=== PATIENT | male | born 1940 | race Caucasian/White ===

== ENCOUNTER 2025-06-15 11:47 | Inpatient (IN) ==
[2025-06-15] MEDS: 0.9 % SODIUM CHLORIDE 1,000 ML IV ONE (12:47)
[2025-06-15] MEDS ORDERED: DEXTROSE 50% 50 ML VIAL IV PRN (15:45)
[2025-06-15] MEDS ORDERED: IPRATROPIUM/ALBUTEROL 3 ML AMPUL.NEB NEB PRN (15:45)
[2025-06-15] MEDS ORDERED: METOCLOPRAMIDE 10 MG/2 ML VIAL IV PRN (15:45)
[2025-06-15] MEDS ORDERED: SENNOSIDES 1 TABLET PO PRN (15:45)
[2025-06-15] MEDS ORDERED: POTASSIUM CHLORIDE 40 MEQ in DEXTROSE 5% IN WATER 500 ML IV PRN (15:45)
[2025-06-15] MEDS ORDERED: METOPROLOL TARTRATE 5 MG/5 ML VIAL IV PRN (15:45)
[2025-06-15] MEDS ORDERED: POLYETHYLENE GLYCOL 3350 17 GM PACKET PO PRN (15:45)
[2025-06-15] MEDS ORDERED: MAGNESIUM SULFATE 2 GM/50 ML BAG IV PRN (15:45)
[2025-06-15] MEDS ORDERED: ACETAMINOPHEN 325 MG TABLET PO PRN (15:45)
[2025-06-15] MEDS ORDERED: DEXTROSE 31 GM ORAL.SUSP PO PRN (15:45)
[2025-06-15] MEDS ORDERED: POTASSIUM CHLORIDE 20 MEQ TABLET PO PRN (15:45)
[2025-06-15] MEDS: 0.9 % SODIUM CHLORIDE 10 ML SYRINGE IV SCH (16:46)
[2025-06-15] MEDS: INSULIN LISPRO 1 UNIT/0.01 ML UNIT SQ SCH (16:47)
[2025-06-15] MEDS: REMDESIVIR 200 MG in 0.9 % SODIUM CHLORIDE 250 ML IV ONE (16:50)
[2025-06-15] MEDS ORDERED: LORATADINE 10 MG TABLET PO PRN (17:14)
[2025-06-15] MEDS: 0.9 % SODIUM CHLORIDE 500 ML IV ONE (19:29)
[2025-06-15] MEDS: GABAPENTIN 100 MG CAPSULE PO SCH (21:00)
[2025-06-15] MEDS: CARVEDILOL 3.125 MG TABLET PO SCH (21:00)
[2025-06-15] MEDS: PANTOPRAZOLE 40 MG TABLET PO SCH (21:00)
[2025-06-15] MEDS: 0.9 % SODIUM CHLORIDE 1,000 ML IV SCH (22:22)
[2025-06-15] MEDS: DOCUSATE SODIUM 100 MG CAPSULE PO SCH (22:40)
[2025-06-15] MEDS: GABAPENTIN 100 MG CAPSULE PO ONE (22:40)
[2025-06-15] MEDS: CARVEDILOL 6.25 MG TABLET ONE (22:40)
[2025-06-15] MEDS: PANTOPRAZOLE 40 MG TABLET ONE (22:40)
[2025-06-16 05:17] LABS: Estimated Average Glucose(eAG) 226.0 mg/dL; Hemoglobin A1C 9.5 % Hgb (4.0-6.0)
[2025-06-16 06:56] LABS: Basophils # (Auto) 0 K/mcL (0.00-0.30); Basophils % (Auto) 0 % (0.0-2.0); Eosinophils # (Auto) 0 K/mcL (0.00-0.70); Eosinophils % (Auto) 0 % (0.0-7.0); Hematocrit 29.7 % (40.1-51.0); Hemoglobin 9.7 g/dL (13.7-17.5); Lymphocytes # (Auto) 0.94 K/mcL (1.50-4.80); Lymphocytes % (Auto) 20.2 % (15.5-49.0); Mean Corpuscular HGB Conc 32.7 g/dL (31.0-36.0); Monocytes # (Auto) 0.38 K/mcL (0.10-0.90); Monocytes % (Auto) 8.2 % (1.0-12.0); Neutrophils % (Auto) 71.4 % (38.0-78.0); Platelet Count 94 K/mcL (140-440); RBC 2.96 M/mcL (4.63-6.08); WBC 4.7 K/mcL (4.5-11.0)
[2025-06-16 06:56] LABS: Uric Acid 5.4 mg/dL (2.5-8.0)
[2025-06-16 06:57] LABS: Iron 15.0 ug/dL (61-157); TIBC Calculation 134.0 ug/dl (228-428); Transferrin % Saturation 11.0 % (20-50)
[2025-06-16 07:04] LABS: Ferritin 752.0 ng/mL (30.0-400.0)
[2025-06-16 07:05] LABS: ALT/SGPT 45 U/L (<40); AST/SGOT 64 U/L (<40); Albumin 3.0 gm/dL (3.2-5.2); Albumin/Globulin Ratio 1.3 (1.0-2.3); Alkaline Phosphatase 36 U/L (39-117); Anion Gap 13.0 (8.0-16.0); Bilirubin,Direct 0.3 mg/dL (<0.3); Bilirubin,Total 0.5 mg/dL (0.1-1.0); Blood Urea Nitrogen 60 mg/dL (8-23); Calcium 7.4 mg/dL (8.6-10.4); Carbon Dioxide 17 mmol/L (22-30); Chloride 108 mmol/L (96-108); Globulin 2.4 gm/dL (2.2-3.7); Glucose 80 mg/dL (70-105); Phosphorous 2.7 mg/dL (2.5-4.5); Potassium 3.3 mmol/L (3.3-5.1); Sodium 138 mmol/L (133-145); Triglycerides 77 mg/dL (<150); Uric Acid 5.5 mg/dL (2.5-8.0)
[2025-06-16 07:15] LABS: Albumin 3.0 gm/dL (3.2-5.2); Anion Gap 14.0 (8.0-16.0); Blood Urea Nitrogen 60.0 mg/dL (8-23); Calcium 7.4 mg/dL (8.6-10.4); Carbon Dioxide 17.0 mmol/L (22-30); Chloride 108.0 mmol/L (96-108); Glucose 80.0 mg/dL (70-105); Phosphorous 2.7 mg/dL (2.5-4.5); Potassium 3.3 mmol/L (3.3-5.1); Sodium 139.0 mmol/L (133-145)
[2025-06-16] MEDS ORDERED: NITROGLYCERIN 0.4 MG TAB.SUBL SL PRN (07:35)
[2025-06-16] MEDS: ATORVASTATIN 40 MG TABLET PO SCH (09:24)
[2025-06-16] MEDS: LEVOTHYROXINE 50 MCG TABLET PO SCH (09:25)
[2025-06-16] MEDS: RIVAROXABAN 15 MG TABLET PO SCH (09:25)
[2025-06-16] MEDS ORDERED: SODIUM BICARBONATE VIAL 100 MEQ in DEXTROSE 5% IN WATER 900 ML IV SCH ×2 (11:15→14:15)
[2025-06-16] MEDS: POTASSIUM CHLORIDE 20 MEQ TABLET PO SCH (11:44)
[2025-06-16] MEDS: SODIUM CHLORIDE 0.9% IV SCH (13:13)
[2025-06-16] MEDS: SUCROSE IV SCH (13:13)
[2025-06-16] MEDS: SODIUM FERRIC GLUCONAT IV SCH (13:13)
[2025-06-16] MEDS: SODIUM BICARBONATE VIAL 100 MEQ in DEXTROSE 5% IN WATER 900 ML IV SCH (13:38)
[2025-06-16] MEDS: LOPERAMIDE 2 MG CAPSULE PO PRN (15:32)
[2025-06-16] MEDS: REMDESIVIR 100 MG in 0.9 % SODIUM CHLORIDE 250 ML IV SCH (15:33)
[2025-06-16] MEDS: PANTOPRAZOLE 40 MG TABLET PO SCH (16:22)
[2025-06-17 06:56] LABS: ALT/SGPT 46 U/L (<40); AST/SGOT 64 U/L (<40); Albumin 2.6 gm/dL (3.2-5.2); Albumin/Globulin Ratio 1.2 (1.0-2.3); Alkaline Phosphatase 36 U/L (39-117); Anion Gap 13.0 (8.0-16.0); Bilirubin,Direct < 0.2 mg/dL (0-0.3); Bilirubin,Total 0.4 mg/dL (0.1-1.0); Blood Urea Nitrogen 72 mg/dL (8-23); Calcium 6.8 mg/dL (8.6-10.4); Carbon Dioxide 19 mmol/L (22-30); Chloride 99 mmol/L (96-108); Globulin 2.2 gm/dL (2.2-3.7); Glucose 126 mg/dL (70-105); Phosphorous 3.9 mg/dL (2.5-4.5); Potassium 3.3 mmol/L (3.3-5.1); Sodium 131 mmol/L (133-145); Triglycerides 54 mg/dL (<150); Uric Acid 5.7 mg/dL (2.5-8.0)
[2025-06-17] MEDS: SODIUM BICARBONATE VIAL 100 MEQ in DEXTROSE 5% IN WATER 900 ML IV SCH ×2 (08:40→17:33)
[2025-06-17] MEDS: FUROSEMIDE 100 MG/10 ML VIAL IV SCH (10:56)
[2025-06-17 11:48] LABS: Creatinine, Spot Urine 65.9 mg/dL (39.0-259.0); Pro:Crea Ratio 1.17 (<0.20); Protein, Spot Urine 77.0 mg/dL
[2025-06-17] MEDS ORDERED: INSULIN LISPRO 1 UNIT/0.01 ML UNIT SQ SCH (11:55)
[2025-06-17] MEDS: DEXAMETHASONE 4 MG TABLET PO SCH (12:35)
[2025-06-17] MEDS: INSULIN LISPRO 1 UNIT/0.01 ML UNIT SQ SCH (12:37)
[2025-06-17] MEDS: cefTRIAXone 1 GM VIAL IV SCH (12:40)
[2025-06-17] MEDS: AZITHROMYCIN 500 MG in DEXTROSE 5% IN WATER 250 ML IV SCH (13:26)
[2025-06-17] MEDS: FUROSEMIDE 100 MG/10 ML VIAL IV ONE ×3 (13:27→20:22)
[2025-06-17] MEDS: 0.9 % SODIUM CHLORIDE 250 ML IV ONE (15:35)
[2025-06-17] MEDS: SODIUM CHLORIDE 0.45% IV SCH (17:59)
[2025-06-17] MEDS: SODIUM BICARBONATE IV SCH (17:59)
[2025-06-17] MEDS: POTASSIUM CHLORIDE 20 MEQ TABLET PO PRN (18:00)
[2025-06-17] MEDS: SODIUM BICARBONATE 50 MEQ/50 ML VIAL ONE (18:08)
[2025-06-17] MEDS ORDERED: SODIUM BICARBONATE VIAL 100 MEQ in DEXTROSE 5% IN WATER 900 ML IV SCH ×2 (18:30)
[2025-06-17 18:49] LABS: Anion Gap 15.0 (8.0-16.0); Blood Urea Nitrogen 78 mg/dL (8-23); Calcium 6.5 mg/dL (8.6-10.4); Carbon Dioxide 17 mmol/L (22-30); Chloride 95 mmol/L (96-108); Glucose 450 mg/dL (70-105); Potassium 3.6 mmol/L (3.3-5.1); Sodium 127 mmol/L (133-145)
[2025-06-17] MEDS: FUROSEMIDE 250 MG in 0.9 % SODIUM CHLORIDE 225 ML IV SCH (19:07)
[2025-06-18] MEDS: SODIUM BICARBONATE 50 MEQ/50 ML VIAL ONE (01:03)
[2025-06-18 07:51] LABS: Basophils # (Auto) 0 K/mcL (0.00-0.30); Basophils % (Auto) 0 % (0.0-2.0); Eosinophils # (Auto) 0 K/mcL (0.00-0.70); Eosinophils % (Auto) 0 % (0.0-7.0); Hematocrit 29.8 % (40.1-51.0); Hemoglobin 10.4 g/dL (13.7-17.5); Lymphocytes # (Auto) 1.76 K/mcL (1.50-4.80); Lymphocytes % (Auto) 19.9 % (15.5-49.0); Mean Corpuscular HGB Conc 34.9 g/dL (31.0-36.0); Monocytes # (Auto) 0.53 K/mcL (0.10-0.90); Monocytes % (Auto) 6.0 % (1.0-12.0); Neutrophils % (Auto) 73.9 % (38.0-78.0); Platelet Count 113 K/mcL (140-440); RBC 3.22 M/mcL (4.63-6.08); WBC 8.8 K/mcL (4.5-11.0)
[2025-06-18 07:53] LABS: ALT/SGPT 46 U/L (<40); AST/SGOT 61 U/L (<40); Albumin 2.6 gm/dL (3.2-5.2); Albumin/Globulin Ratio 1.2 (1.0-2.3); Alkaline Phosphatase 40 U/L (39-117); Anion Gap 12.0 (8.0-16.0); Bilirubin,Direct < 0.2 mg/dL (0-0.3); Bilirubin,Total 0.3 mg/dL (0.1-1.0); Blood Urea Nitrogen 83 mg/dL (8-23); Calcium 6.6 mg/dL (8.6-10.4); Carbon Dioxide 23 mmol/L (22-30); Chloride 99 mmol/L (96-108); Globulin 2.1 gm/dL (2.2-3.7); Glucose 70 mg/dL (70-105); Phosphorous 3.7 mg/dL (2.5-4.5); Potassium 4.0 mmol/L (3.3-5.1); Sodium 134 mmol/L (133-145); Triglycerides 39 mg/dL (<150); Uric Acid 6.0 mg/dL (2.5-8.0)
[2025-06-18] MEDS: INSULIN GLARGINE, HUMAN 1 UNIT/0.01 ML SQ SCH (10:29)
[2025-06-18] MEDS: FLU VACC TS2025-26(65YR UP)/PF 180 MCG/0.5 ML SYRINGE IM ONE (18:45)
[2025-06-18 18:46] LABS: Anion Gap 18.0 (8.0-16.0); Blood Urea Nitrogen 84 mg/dL (8-23); Calcium 6.5 mg/dL (8.6-10.4); Carbon Dioxide 21 mmol/L (22-30); Chloride 93 mmol/L (96-108); Glucose 263 mg/dL (70-105); Potassium 3.8 mmol/L (3.3-5.1); Sodium 132 mmol/L (133-145)
[2025-06-19 06:27] LABS: Basophils # (Auto) 0 K/mcL (0.00-0.30); Basophils % (Auto) 0 % (0.0-2.0); Eosinophils # (Auto) 0 K/mcL (0.00-0.70); Eosinophils % (Auto) 0 % (0.0-7.0); Hematocrit 27.8 % (40.1-51.0); Hemoglobin 9.6 g/dL (13.7-17.5); Lymphocytes # (Auto) 1.33 K/mcL (1.50-4.80); Lymphocytes % (Auto) 13.9 % (15.5-49.0); Mean Corpuscular HGB Conc 34.5 g/dL (31.0-36.0); Monocytes # (Auto) 0.72 K/mcL (0.10-0.90); Monocytes % (Auto) 7.5 % (1.0-12.0); Neutrophils % (Auto) 78.3 % (38.0-78.0); Platelet Count 110 K/mcL (140-440); RBC 2.95 M/mcL (4.63-6.08); WBC 9.6 K/mcL (4.5-11.0)
[2025-06-19 06:40] LABS: Albumin 2.5 gm/dL (3.2-5.2); Anion Gap 15.0 (8.0-16.0); Blood Urea Nitrogen 92 mg/dL (8-23); Calcium 6.1 mg/dL (8.6-10.4); Carbon Dioxide 25 mmol/L (22-30); Chloride 95 mmol/L (96-108); Glucose 151 mg/dL (70-105); Phosphorous 4.8 mg/dL (2.5-4.5); Potassium 3.4 mmol/L (3.3-5.1); Sodium 135 mmol/L (133-145)
[2025-06-19] MEDS: APIXABAN 2.5 MG TABLET PO SCH (09:47)
[2025-06-19] MEDS: ONDANSETRON 4 MG/2 ML VIAL IV PRN (20:40)
[2025-06-19] MEDS: HALOPERIDOL LACTATE 5 MG/ML VIAL IV PRN (21:54)
[2025-06-19] MEDS: HALOPERIDOL LACTATE 5 MG/ML VIAL ONE (21:54)
[2025-06-20 04:08] VITALS: O2SAT 93
[2025-06-20 05:50] LABS: Basophils # (Auto) 0 K/mcL (0.00-0.30); Basophils % (Auto) 0 % (0.0-2.0); Eosinophils # (Auto) 0 K/mcL (0.00-0.70); Eosinophils % (Auto) 0 % (0.0-7.0); Hematocrit 27.9 % (40.1-51.0); Hemoglobin 9.8 g/dL (13.7-17.5); Lymphocytes # (Auto) 1.56 K/mcL (1.50-4.80); Lymphocytes % (Auto) 13.7 % (15.5-49.0); Mean Corpuscular HGB Conc 35.1 g/dL (31.0-36.0); Monocytes # (Auto) 1.03 K/mcL (0.10-0.90); Monocytes % (Auto) 9.0 % (1.0-12.0); Neutrophils % (Auto) 76.0 % (38.0-78.0); Platelet Count 146 K/mcL (140-440); RBC 2.99 M/mcL (4.63-6.08); WBC 11.4 K/mcL (4.5-11.0)
[2025-06-20] MEDS ORDERED: HALOPERIDOL LACTATE 5 MG/ML VIAL IV PRN (06:40)
[2025-06-20 06:41] LABS: ALT/SGPT 51 U/L (<40); AST/SGOT 89 U/L (<40); Albumin 2.7 gm/dL (3.2-5.2); Albumin/Globulin Ratio 1.4 (1.0-2.3); Alkaline Phosphatase 45 U/L (39-117); Anion Gap 15.0 (8.0-16.0); Bilirubin,Direct < 0.2 mg/dL (0-0.3); Bilirubin,Total 0.3 mg/dL (0.1-1.0); Blood Urea Nitrogen 100 mg/dL (8-23); Calcium 5.9 mg/dL (8.6-10.4); Carbon Dioxide 31 mmol/L (22-30); Chloride 92 mmol/L (96-108); Globulin 1.9 gm/dL (2.2-3.7); Glucose 221 mg/dL (70-105); Phosphorous 5.5 mg/dL (2.5-4.5); Potassium 3.3 mmol/L (3.3-5.1); Sodium 138 mmol/L (133-145); Triglycerides 90 mg/dL (<150); Uric Acid 6.2 mg/dL (2.5-8.0)
[2025-06-20 08:42] VITALS: TEMP 97.1
[2025-06-20] MEDS: MAGNESIUM SULFATE 1 GM/100 ML BAG IV ONE (08:55)
== END 2025-06-20 10:30 | disposition short-term general hospital (02) | DRG 682 ==
LOC: ED 11:47 → MEDSUR 15:19 → ICU 06-17 17:02
PROVIDERS: ADMIT Internal Medicine; ATTEND Internal Medicine